=== PATIENT | male | born 1990 | race Caucasian/White ===

== ENCOUNTER 2019-06-11 15:52 | Inpatient (IN) | payer OTHER ==
[2019-06-11 19:25] VITALS: BMI 29.9
--- NOTE | 2019-06-11 22:10 | HP ---
CIWA Score Nausea/Vomitin Muscle Tremors: 4-Moderate,w/Arms Extend Anxiety: 3 Agitation: 3 Paroxysmal Sweats: 3 Orientation: 1-Uncertain about Date Tacttile Disturbances: 0-None Auditory Disturbances: 0-None Visual Disturbances: 0-None Headache: 3-Moderate CIWA-Ar Total Score: 19 - Admission Criteria [facility]ASAS Guidelines: Admission for Medically Managed Detox: Requires at least one of the followin. CIWA greater than 12 2. Seizures within the past 24 hours 3. Delirium tremens within the past 24 hours 4. Hallucinations within the past 24 hours 5. Acute intervention needed for co occurring medical disorder 6. Acute intervention needed for co occurring psychiatric disorder 7. Severe withdrawal that cannot be handled at a lower level of care (continued vomiting, continued diarrhea, abnormal vital signs) requiring intravenous medication and/or fluids 8. Admission ROS [facility] Chief Complaint: Alcohol withdrawal symptoms, on methadone therapy Allergies/Adverse Reactions: Allergies Allergy/AdvReac Type Severity Reaction Status Date / Time No Known Allergies Allergy Verified 06/11/19 19:16 History of Present Illness: 28 years old male with 11 years of alcohol dependence and 6 years of opiate dependence is seeking admission to detox. Patient has been in detox, last at [facility] and 4 months of sobriety. His urine was positive only for cocaine and Buprenorphine. Patient states that he had a prescription at one point, stopped in April and does not want to continue with Buprenorphine. Patient is to be detoxed from Alcohol. He reports that he has relapsed several times after detox and would want to go to Rehab. - Ebola screening Have you traveled outside of the country in the last 21 days: No Have you had contact with anyone from an Ebola affected area: No Do you have a fever: No - Review of Systems Constitutional: Chills, Loss of Appetite, Malaise, Weakness EENT: reports: No Symptoms Reported, Nose Congestion, Sinus Pressure Respiratory: reports: No Symptoms reported Cardiac: reports: No Symptoms Reported GI: reports: Poor Appetite, Poor Fluid Intake, Abdominal cramping : reports: No Symptoms Reported Musculoskeletal: reports: Back Pain, Muscle Pain Integumentary: reports: Dryness, Flushing Neuro: reports: Tremors Endocrine: reports: No Symptoms Reported Hematology: reports: No Symptoms Reported Psychiatric: reports: Mood/Affect Appropiate, Orientated x3 Other Systems: Reviewed and Negative Patient History - Patient Medical History Hx Anemia: No Hx Asthma: No Hx Chronic Obstructive Pulmonary Disease (COPD): No Hx Cancer: No Hx Cardiac Disorders: No Hx Congestive Heart Failure: No Hx Hypertension: No Hx Hypercholesterolemia: No Hx Pacemaker: No HX Cerebrovascular Accident: No Hx Seizures: No Hx Diabetes: No Hx Gastrointestinal Disorders: No Hx Liver Disease: No Hx Genitourinary Disorders: No Hx Sexually Transmitted Disorders: No Hx Renal Disease (ESRD): No Hx Thyroid Disease: No Hx Human Immunodeficiency Virus (HIV): No (Negative 2019) Hx Hepatitis C: No Hx Depression: No Hx Suicide Attempt: No Hx Bipolar Disorder: Yes Hx Schizophrenia: No - Patient Surgical History Past Surgical History: Yes Hx Neurologic Surgery: No Hx Cataract Extraction: No Hx Cardiac Surgery: No Hx Lung Surgery: No Hx Breast Surgery: No Hx Breast Biopsy: No Hx Abdominal Surgery: No Hx Appendectomy: No Hx Cholecystectomy: No Hx Genitourinary Surgery: No Hx Section: No Hx Orthopedic Surgery: No Other Surgical History: HERNIA REPAIR- 2014 Anesthesia Reaction: No - PPD History Previous Implant?: Yes Documented Results: Negative w/o proof Implanted On Prior R Admission?: No PPD to be Administered?: Yes - Reproductive History Patient is a Female of Child Bearing Age (11 -55 yrs old): No (male) - Smoking Cessation Smoking history: Current every day smoker Have you smoked in the past 12 months: Yes Aproximately how many cigarettes per day: 5 Hx Chewing Tobacco Use: No Initiated information on smoking cessation: Yes 'Breaking Loose' booklet given: 06/11/19 - Substance & Tx. History Hx Alcohol Use: Yes Hx Substance Use: Yes Substance Use Type: Alcohol, Cocaine, Heroin, Marijuana, Opiates Hx Substance Use Treatment: Yes ([facility]) - Substances abused Alcohol Substance route: Oral Frequency: Daily Amount used: LIQUOR- 3 PINTS, BEER- 1 SIX PACK Age of first use: 19 Date of last use: 06/10/19 Heroin Substance route: Inhalation Frequency: Daily Amount used: 5 BAGS Age of first use: 22 Date of last use: 06/09/19 Cocaine Substance route: Inhalation Frequency: Daily Amount used: 2 BAGS Age of first use: 24 Date of last use: 06/10/19 Marijuana/Hashish Substance route: Smoking Frequency: Daily Amount used: 3 BLUNTS Age of first use: 12 Date of last use: 06/04/19 Family Disease History - Family Disease History Family Disease History: Other: Father (Alcohol and Cocaine addiction), Mother ( Bipolar) Admission Physical Exam [facility] - Vital Signs Vital Signs: Vital Signs - 24 hr 06/11/19 19:10 Temperature 99.2 F Pulse Rate 75 Respiratory 18 Rate Blood Pressure 118/62 - Physical General Appearance: Yes: Moderate Distress, Tremorous, Anxious HEENTM: Yes: Normal ENT Inspection, Normal Voice Respiratory: Yes: Lungs Clear, Normal Breath Sounds, No Respiratory Distress Neck: Yes: Supple Breast: Yes: Breast Exam Deferred Cardiology: Yes: Regular Rhythm, Regular Rate Abdominal: Yes: Normal Bowel Sounds Genitourinary: Yes: Within Normal Limits Back: Yes: Normal Inspection Musculoskeletal: Yes: Back pain Extremities: Yes: Tremors Neurological: Yes: Alert, Normal Mood/Affect Integumentary: Yes: Warm Lymphatic: Yes: Within Normal Limits - Diagnostic (1) Alcohol dependence with uncomplicated withdrawal Current Visit: Yes Status: Chronic (2) Nicotine dependence Current Visit: Yes Status: Chronic Qualifiers: Substance use status: in withdrawal (3) Opioid dependence with withdrawal Current Visit: Yes Status: Chronic (4) Cocaine dependence Current Visit: Yes Status: Chronic Qualifiers: Substance use status: uncomplicated Qualified Code(s): F14.20 - Cocaine dependence, uncomplicated Cleared for Admission [facility] - Detox or Rehab [facility] Level of Care: Medically Managed Detox Regimen/Protocol: Librium Breathalyzer - Breathalyzer Breathalyzer: 0 Urine Drug Screen - Test Device Lot number: [id number] Expiration date: 03/12/21 - Control Is test valid?: Yes - Results Drug screen NEGATIVE: No Urine drug screen results: ERIC-Cocaine, BUP-Suboxone Inpatient Rehab Admission - Rehab Decision to Admit Inpatient rehab admission?: No
[2019-06-11] MEDS ORDERED: BISMUTH SUBSALICYLATE 524 MG/30 ML UD PO PRN (22:17)
[2019-06-11] MEDS ORDERED: NICOTINE POLACRILEX 2 MG GUM BUC PRN (22:17)
[2019-06-11] MEDS ORDERED: MENTHOL/PHENOL 1 EACH UD MM PRN (22:17)
[2019-06-11] MEDS ORDERED: chlordiazePOXIDE HCL 25 MG CAPSULE PO PRN (22:17)
[2019-06-11] MEDS ORDERED: ACETAMINOPHEN 325 MG TABLET (FP) PO PRN ×2 (22:17)
[2019-06-11] MEDS ORDERED: MAGNESIUM CITRATE 300 ML BOTTLE PO PRN (22:17)
[2019-06-11] MEDS ORDERED: MAGNESIUM HYDROX 2400MG/30ML ORAL SUSPENSION 30 ML CUP PO PRN (22:17)
[2019-06-11] MEDS ORDERED: MAG HYDROX/AL HYDROX/SIMETH 30 ML UNIT-DOSE CUP PO PRN (22:17)
[2019-06-11] MEDS: chlordiazePOXIDE HCL 25 MG CAPSULE PO SCH (23:21)
[2019-06-11] MEDS: IBUPROFEN 400 MG TABLET (FP) PO PRN (23:22)
[2019-06-11] MEDS: MELATONIN 5 MG TABLETS PO PRN (23:23)
[2019-06-12] MEDS: chlordiazePOXIDE HCL 25 MG CAPSULE PO SCH ×4 (08:01→22:04)
--- NOTE | 2019-06-12 08:23 | EKG ---
Test Reason : Blood Pressure : / mmHG Vent. Rate : 067 BPM Atrial Rate : 067 BPM P-R Int : 162 ms QRS Dur : 090 ms QT Int : 412 ms P-R-T Axes : 055 001 -09 degrees QTc Int : 435 ms NORMAL SINUS RHYTHM T WAVE ABNORMALITY, CONSIDER INFERIOR ISCHEMIA ABNORMAL ECG NO PREVIOUS ECGS AVAILABLE Confirmed by ROSALINDA LOZANO, SARI ([id number]) on 06/12/2019 8:22:44 AM Referred By: ZOYA MCGREGOR Confirmed By:SARI TELLEZ MD
[2019-06-12] MEDS: PRENATAL VITAMINS W/ FOLIC ACID TABLET (FP) PO SCH (10:05)
[2019-06-12] MEDS: IBUPROFEN 400 MG TABLET (FP) PO PRN (10:08)
[2019-06-12] MEDS: NICOTINE 21 MG/24 HOURS TOPICAL PATCH TD SCH (10:09)
[2019-06-12 10:26] LABS: HEMATOCRIT 41.6 % (35.4-49); HEMOGLOBIN 14.1 GM/dL (11.7-16.9); MCH 29.7 pg (25.7-33.7); MCHC 33.9 g/dl (32.0-35.9); MEAN CELL VOLUME 87.8 fl (80-96); MEAN PLT VOLUME 8.2 fl (7.5-11.1); PLATELET COUNT 267 K/MM3 (134-434); RBC 4.74 M/mm3 (4.00-5.60); RDW 13.8 % (11.9-15.9); WHITE BLOOD COUNT 6.6 K/mm3 (4.0-10.0)
[2019-06-12 10:40] LABS: ALBUMIN 3.8 g/dl (3.4-5.0); BILIRUBIN,TOTAL 0.3 mg/dL (0.2-1); BLOOD UREA NITROGEN 9.4 mg/dL (7-18); CALCIUM 9.2 mg/dL (8.5-10.1); CREATININE 1.2 mg/dL (0.55-1.3); POTASSIUM 4.1 mmol/L (3.5-5.1); TOT PROT 6.3 g/dl (6.4-8.2)
--- NOTE | 2019-06-12 11:15 | PN ---
[facility] CIWA - CIWA Score Nausea/Vomitin-No Nausea/No Vomiting Muscle Tremors: 3 Anxiety: 3 Agitation: 3 Paroxysmal Sweats: 2 Orientation: 0-Oriented Tacttile Disturbances: 0-None Auditory Disturbances: 0-None Visual Disturbances: 0-None Headache: 0-None Present CIWA-Ar Total Score: 11 S Progress Note (SOAP) Subjective: joint pain sweats body aches interrupted sleep Objective: 06/12/19 11:14 Vital Signs Temperature 97.9 F 06/12/19 09:33 Pulse Rate 69 06/12/19 09:33 Respiratory Rate 20 06/12/19 09:33 Blood Pressure 135/92 06/12/19 09:33 O2 Sat by Pulse Oximetry (%) Laboratory Tests 06/12/19 06/12/19 07:30 07:30 WBC 6.6 RBC 4.74 Hgb 14.1 Hct 41.6 MCV 87.8 MCH 29.7 MCHC 33.9 RDW 13.8 Plt Count 267 MPV 8.2 Sodium 142 Potassium 4.1 Chloride 106 Carbon Dioxide 32 Anion Gap 4 L BUN 9.4 Creatinine 1.2 Est GFR (CKD-EPI)AfAm 93.48 Est GFR (CKD-EPI)NonAf 80.66 Random Glucose 136 H Calcium 9.2 Total Bilirubin 0.3 AST 18 ALT 31 Alkaline Phosphatase 55 Total Protein 6.3 L Albumin 3.8 labs noted aaox3 ambulating no acute distress Assessment: 06/12/19 11:14 withdrawal sx Plan: continue detox increase fluids motrin/tylenol prn
--- NOTE | 2019-06-12 15:18 | CONSULT ---
[facility] Psychiatric Consult - Data Date of interview: 06/12/19 Admission source: [facility] Identifying data: Patient is a 28 year old single male, father of one, unemployed and is currently residing in a senior living. This is patient's first admission to detox at [facility]. Patient admitted to for alcohol and cocaine dependence. Substance Abuse History: Smoking Cessation. Smoking history: Current every day smoker. Have you smoked in the past 12 months: Yes. Aproximately how many cigarettes per day: 5. Hx Chewing Tobacco Use: No. Initiated information on smoking cessation: Yes. 'Breaking Loose' booklet given: 06/11/19. - Substance & Tx. History. Hx Alcohol Use: Yes. Hx Substance Use: Yes. Substance Use Type : Alcohol, Cocaine, Heroin, Marijuana, Opiates. Hx Substance Use Treatment: Yes ([facility]). - Substances abused. Alcohol. Substance route: Oral. Frequency: Daily. Amount used: LIQUOR- 3 PINTS, BEER- 1 SIX PACK. Age of first use: 19. Date of last use: 06/10/19. Heroin. Substance route: Inhalation. Frequency: Daily. Amount used: 5 BAGS. Age of first use: 22. Date of last use: 06/09/19. Cocaine. Substance route: Inhalation. Frequency: Daily. Amount used: 2 BAGS. Age of first use: 24. Date of last use: 06/10/19. Marijuana/Hashish. Substance route: Smoking. Frequency: Daily. Amount used: 3 BLUNTS. Age of first use: 12. Date of last use: 06/04/19 Medical History: hernia repair in 2015. Psychiatric History: Patient's reports first being diagnosed with Bipolar disorder at the age of 21 after seeing a psychiatrist at [facility] outpatient clinic. Mr. Malcolm Moss reports history of one psychiatric hospitalization at [facility] three years ago after having a manic episiode in which he experienced symptoms of euphoria, risky behavior, impuslivity, and insomnia. He reports past trials of depakote, risperdal and wellbutrin. Patient currently see's a psychiatrist at [facility] in the [facility] and is prescribed Finger 300mg TID. Reports most recently taking medications 3 days ago. Patient denies h/o suicide attempt. At present, patient is slightly irritable but cooperative with headline writer. No psychosis, manic, or depressive symptoms noted. Physical/Sexual Abuse/Trauma History: denies. Mental Status Exam - Mental Status Exam Alert and Oriented to: Time, Place, Person Cognitive Function: Good Patient Appearance: Well Groomed Mood: Irritable (slightly irritable) Affect: Mood Congruent Patient Behavior: Cooperative Speech Pattern: Appropriate Voice Loudness: Normal Thought Process: Goal Oriented Thought Disorder: Not Present Hallucinations: Denies Suicidal Ideation: Denies Homicidal Ideation: Denies Insight/Judgement: Poor Sleep: Fair Appetite: Fair Muscle strength/Tone: Normal Gait/Station: Normal Psychiatric Findings - Problem List ([place] 1, 2,3) (1) Substance induced mood disorder Current Visit: Yes Status: Acute (2) Alcohol dependence with uncomplicated withdrawal Current Visit: Yes Status: Acute (3) Cocaine dependence Current Visit: Yes Status: Chronic Qualifiers: Substance use status: uncomplicated Qualified Code(s): F14.20 - Cocaine dependence, uncomplicated (4) Nicotine dependence Current Visit: Yes Status: Chronic Qualifiers: Substance use status: in withdrawal (5) Opioid dependence with withdrawal Current Visit: Yes Status: Chronic (6) Bipolar disorder Current Visit: Yes Status: Chronic - Initial Treatment Plan Initial Treatment Plan: Psychoeducation provided. Detoxification in progress. [facility] pharmacy called at [phone] and able to speak to pharmacist. As per pharmacy staff patient picked up his prescription of lithium 300mg TID on . Will order Finger 300mg BID. Finger level ordered for 06/13/10. Renal function within normal limits. Benefits and side effects discussed. Verbal consent given.
[2019-06-12] MEDS: LITHIUM CARBONATE 300 MG CAPSULE (FP) PO SCH (22:04)
[2019-06-12] MEDS: THIAMINE HCL 100 MG TABLET (FP) PO SCH (22:04)
[2019-06-13] MEDS: chlordiazePOXIDE HCL 25 MG CAPSULE PO SCH ×4 (06:11→22:03)
[2019-06-13] MEDS: PRENATAL VITAMINS W/ FOLIC ACID TABLET (FP) PO SCH (10:19)
[2019-06-13] MEDS: LITHIUM CARBONATE 300 MG CAPSULE (FP) PO SCH ×2 (10:19→22:03)
[2019-06-13] MEDS: NICOTINE 21 MG/24 HOURS TOPICAL PATCH TD SCH (10:20)
--- NOTE | 2019-06-13 12:13 | PN ---
[facility] CIWA - CIWA Score Nausea/Vomitin-No Nausea/No Vomiting Muscle Tremors: 2 Anxiety: 1-Mildly Anxious Agitation: 1-Slight > Activity Paroxysmal Sweats: 1-Minimal Palms Moist Orientation: 0-Oriented Tacttile Disturbances: 0-None Auditory Disturbances: 0-None Visual Disturbances: 0-None Headache: 0-None Present CIWA-Ar Total Score: 5 [facility] Progress Note (SOAP) Subjective: little anxiety feeling much better Objective: 06/13/19 12:11 Vital Signs Temperature 97.9 F 06/13/19 09:45 Pulse Rate 78 06/13/19 09:45 Respiratory Rate 18 06/13/19 09:45 Blood Pressure 130/69 06/13/19 09:45 O2 Sat by Pulse Oximetry (%) Laboratory Tests 06/12/19 06/12/19 06/12/19 07:30 07:30 07:30 WBC 6.6 RBC 4.74 Hgb 14.1 Hct 41.6 MCV 87.8 MCH 29.7 MCHC 33.9 RDW 13.8 Plt Count 267 MPV 8.2 Sodium 142 Potassium 4.1 Chloride 106 Carbon Dioxide 32 Anion Gap 4 L BUN 9.4 Creatinine 1.2 Est GFR (CKD-EPI)AfAm 93.48 Est GFR (CKD-EPI)NonAf 80.66 Random Glucose 136 H Calcium 9.2 Total Bilirubin 0.3 AST 18 ALT 31 Alkaline Phosphatase 55 Total Protein 6.3 L Albumin 3.8 RPR Titer HIV 1&2 Antibody Screen Negative HIV P24 Antigen Negative 06/12/19 07:30 WBC RBC Hgb Hct MCV MCH MCHC RDW Plt Count MPV Sodium Potassium Chloride Carbon Dioxide Anion Gap BUN Creatinine Est GFR (CKD-EPI)AfAm Est GFR (CKD-EPI)NonAf Random Glucose Calcium Total Bilirubin AST ALT Alkaline Phosphatase Total Protein Albumin RPR Titer Nonreactive HIV 1&2 Antibody Screen HIV P24 Antigen labs noted aaox3 ambulating no acute distress Assessment: 06/13/19 12:12 withdrawal sx Plan: continue detox increase fluids
[2019-06-13] MEDS: MELATONIN 5 MG TABLETS PO PRN (22:03)
[2019-06-13] MEDS: THIAMINE HCL 100 MG TABLET (FP) PO SCH (22:03)
[2019-06-13] MEDS: METHOCARBAMOL 500 MG TABLET PO PRN (22:04)
[2019-06-14] MEDS ORDERED: chlordiazePOXIDE HCL 10 MG CAPSULE PO PRN
[2019-06-14] MEDS: hydrOXYzine PAMOATE 25 MG CAPSULE (FP) PO PRN ×2 (01:50→17:25)
[2019-06-14] MEDS: chlordiazePOXIDE HCL 10 MG CAPSULE PO SCH ×4 (05:20→22:44)
[2019-06-14] MEDS: IBUPROFEN 400 MG TABLET (FP) PO PRN ×2 (05:20→15:24)
[2019-06-14] MEDS: PRENATAL VITAMINS W/ FOLIC ACID TABLET (FP) PO SCH (10:20)
[2019-06-14] MEDS: LITHIUM CARBONATE 300 MG CAPSULE (FP) PO SCH ×2 (10:20→23:08)
[2019-06-14] MEDS: NICOTINE 21 MG/24 HOURS TOPICAL PATCH TD SCH (10:20)
--- NOTE | 2019-06-14 13:41 | PN ---
S CIWA - CIWA Score Nausea/Vomitin-No Nausea/No Vomiting Muscle Tremors: 1-None Visible, but [place] Anxiety: 1-Mildly Anxious Agitation: 1-Slight > Activity Paroxysmal Sweats: 1-Minimal Palms Moist Orientation: 0-Oriented Tacttile Disturbances: 0-None Auditory Disturbances: 0-None Visual Disturbances: 0-None Headache: 0-None Present CIWA-Ar Total Score: 4 [facility] Progress Note (SOAP) Subjective: anxiety Objective: 06/14/19 13:40 Vital Signs Temperature 97.9 F 06/14/19 09:22 Pulse Rate 71 06/14/19 09:22 Respiratory Rate 18 06/14/19 09:22 Blood Pressure 127/76 06/14/19 09:22 O2 Sat by Pulse Oximetry (%) Laboratory Tests 06/12/19 06/12/19 06/12/19 07:30 07:30 07:30 WBC 6.6 RBC 4.74 Hgb 14.1 Hct 41.6 MCV 87.8 MCH 29.7 MCHC 33.9 RDW 13.8 Plt Count 267 MPV 8.2 Sodium 142 Potassium 4.1 Chloride 106 Carbon Dioxide 32 Anion Gap 4 L BUN 9.4 Creatinine 1.2 Est GFR (CKD-EPI)AfAm 93.48 Est GFR (CKD-EPI)NonAf 80.66 Random Glucose 136 H Calcium 9.2 Total Bilirubin 0.3 AST 18 ALT 31 Alkaline Phosphatase 55 Total Protein 6.3 L Albumin 3.8 [place] RPR Titer HIV 1&2 Antibody Screen Negative HIV P24 Antigen Negative 06/12/19 06/13/19 07:30 07:30 WBC RBC Hgb Hct MCV MCH MCHC RDW Plt Count MPV Sodium Potassium Chloride Carbon Dioxide Anion Gap BUN Creatinine Est GFR (CKD-EPI)AfAm Est GFR (CKD-EPI)NonAf Random Glucose Calcium Total Bilirubin AST ALT Alkaline Phosphatase Total Protein Albumin [place] 0.1 L RPR Titer Nonreactive HIV 1&2 Antibody Screen HIV P24 Antigen labs noted aaox3 ambulating no acute distress Assessment: 06/14/19 13:40 mild withdrawal sx Plan: continue detox increase fluids
[2019-06-14] MEDS: MELATONIN 5 MG TABLETS PO PRN (22:44)
[2019-06-14] MEDS: THIAMINE HCL 100 MG TABLET (FP) PO SCH (22:44)
[2019-06-14] MEDS: METHOCARBAMOL 500 MG TABLET PO PRN (22:52)
[2019-06-15] MEDS: chlordiazePOXIDE HCL 10 MG CAPSULE PO SCH ×2 (05:07→17:19)
[2019-06-15] MEDS: IBUPROFEN 400 MG TABLET (FP) PO PRN ×2 (05:08→17:19)
[2019-06-15] MEDS: NICOTINE 21 MG/24 HOURS TOPICAL PATCH TD SCH (10:16)
[2019-06-15] MEDS: PRENATAL VITAMINS W/ FOLIC ACID TABLET (FP) PO SCH (10:16)
[2019-06-15] MEDS: METHOCARBAMOL 500 MG TABLET PO PRN ×2 (10:16→22:47)
[2019-06-15] MEDS: LITHIUM CARBONATE 300 MG CAPSULE (FP) PO SCH ×2 (10:16→22:46)
[2019-06-15] MEDS: hydrOXYzine PAMOATE 25 MG CAPSULE (FP) PO PRN (10:18)
--- NOTE | 2019-06-15 11:20 | PN ---
S CIWA - CIWA Score Nausea/Vomitin-No Nausea/No Vomiting Muscle Tremors: None Anxiety: 2 Agitation: 0-Normal Activity Paroxysmal Sweats: 2 Orientation: 0-Oriented Tacttile Disturbances: 0-None Auditory Disturbances: 0-None Visual Disturbances: 0-None Headache: 0-None Present CIWA-Ar Total Score: 4 S Progress Note (SOAP) Subjective: c/o sweats and anxiety. Objective: 06/15/19 11:23 Vital Signs 06/15/19 06/15/19 06:46 09:48 Temperature 97.5 F L 97.5 F L Pulse Rate 64 72 Respiratory 18 18 Rate Blood Pressure 111/60 130/76 Lab Results WBC 6.6 K/mm3 (4.0-10.0) 06/12/19 07:30 RBC 4.74 M/mm3 (4.00-5.60) 06/12/19 07:30 Hgb 14.1 GM/dL (11.7-16.9) 06/12/19 07:30 Hct 41.6 % (35.4-49) 06/12/19 07:30 MCV 87.8 fl (80-96) 06/12/19 07:30 MCHC 33.9 g/dl (32.0-35.9) 06/12/19 07:30 RDW 13.8 % (11.9-15.9) 06/12/19 07:30 Plt Count 267 K/MM3 (134-434) 06/12/19 07:30 Sodium 142 mmol/L (136-145) 06/12/19 07:30 Potassium 4.1 mmol/L (3.5-5.1) 06/12/19 07:30 Chloride 106 mmol/L (98-107) 06/12/19 07:30 Carbon Dioxide 32 mmol/L (21-32) 06/12/19 07:30 Anion Gap 4 MMOL/L (8-16) L 06/12/19 07:30 BUN 9.4 mg/dL (7-18) 06/12/19 07:30 Creatinine 1.2 mg/dL (0.55-1.3) 06/12/19 07:30 Random Glucose 136 mg/dL (74-106) H 06/12/19 07:30 Calcium 9.2 mg/dL (8.5-10.1) 06/12/19 07:30 Labs noted. Assessment: 06/15/19 11:23 AOX3, in no acute distress. Full ROM, ambulating in the unit. mild withdrawal symptoms. For d/c tomorrow Plan: continue detox. D/C in AM.
[2019-06-15] MEDS: THIAMINE HCL 100 MG TABLET (FP) PO SCH (22:46)
[2019-06-15] MEDS: MELATONIN 5 MG TABLETS PO PRN (22:46)
[2019-06-16] MEDS ORDERED: chlordiazePOXIDE HCL 10 MG CAPSULE PO ONE (05:00)
[2019-06-16 06:54] VITALS: BP 130/66; PULSE 67; TEMP 97
--- NOTE | 2019-06-16 12:23 | DS ---
[facility] Detox Discharge Summary Admission Date: 06/11/19 Discharge Date: 06/16/19 - History Present History: Alcohol Dependence, Cannabis Dependence, Cocaine Dependence, Opioid Dependence Additional Comments: Patient completed detox and discharged safely in stable condition. Instructed to follow up with PCP within 1-2 weeks. Pertinent Past History: Nicotine dependence - Physical Exam Results Vital Signs: Vital Signs Temperature 97 F L 06/16/19 06:53 Pulse Rate 67 06/16/19 06:53 Respiratory Rate 18 06/16/19 06:53 Blood Pressure 130/66 06/16/19 06:53 O2 Sat by Pulse Oximetry (%) Pertinent Admission Physical Exam Findings: Withdrawal symptoms Laboratory Tests 06/12/19 06/12/19 06/12/19 07:30 07:30 07:30 WBC 6.6 RBC 4.74 Hgb 14.1 Hct 41.6 MCV 87.8 MCH 29.7 MCHC 33.9 RDW 13.8 Plt Count 267 MPV 8.2 Sodium 142 Potassium 4.1 Chloride 106 Carbon Dioxide 32 Anion Gap 4 L BUN 9.4 Creatinine 1.2 Est GFR (CKD-EPI)AfAm 93.48 Est GFR (CKD-EPI)NonAf 80.66 Random Glucose 136 H Calcium 9.2 Total Bilirubin 0.3 AST 18 ALT 31 Alkaline Phosphatase 55 Total Protein 6.3 L Albumin 3.8 [place] RPR Titer HIV 1&2 Antibody Screen Negative HIV P24 Antigen Negative TB (QFT) Incubation TB Test (QFT) Nil TB Test (QFT) Mitogen TB Test (QFT) Antigen TB Test (QFT) TB Positive Criteria 06/12/19 06/12/19 06/13/19 07:30 07:30 07:30 WBC RBC Hgb Hct MCV MCH MCHC RDW Plt Count MPV Sodium Potassium Chloride Carbon Dioxide Anion Gap BUN Creatinine Est GFR (CKD-EPI)AfAm Est GFR (CKD-EPI)NonAf Random Glucose Calcium Total Bilirubin AST ALT Alkaline Phosphatase Total Protein Albumin [place] 0.1 L RPR Titer Nonreactive HIV 1&2 Antibody Screen HIV P24 Antigen TB (QFT) Incubation TB Test (QFT) Nil 0.02 TB Test (QFT) Mitogen >10.00 TB Test (QFT) Antigen 0.02 TB Test (QFT) Negative TB Positive Criteria Labs reviewed: glucose 136mg/dl, most likely r/t withdrawal, follow up with PCP for monitoring - Treatment Hospital Course: Detox Protocol Followed, Detoxed Safely, Responded well, Discharged Condition Good - Medication Discharge Medications: Ambulatory Orders Cole[place] Carbonate [Eskalith -] 300 mg PO TID 06/11/19 - Diagnosis (1) Cannabis dependence Status: Chronic (2) Alcohol dependence with uncomplicated withdrawal Status: Acute (3) Cocaine dependence Status: Chronic Qualifiers: Substance use status: uncomplicated Qualified Code(s): F14.20 - Cocaine dependence, uncomplicated (4) Nicotine dependence Status: Chronic Qualifiers: Substance use status: in withdrawal (5) Opioid dependence with withdrawal Status: Acute (6) Hyperglycemia Status: Acute - AMA Did Patient Leave Against Medical Advice: No (Follow up with PCP within 1-2 weeks)
== END 2019-06-16 08:42 | disposition home or self-care (01) | DRG 773 ==
LOC: YASAS 15:52 → Y6N 22:41
PROVIDERS: ADMIT Surgery; ATTEND Surgery
PROC: HZ2ZZZZ Detoxification Services for Substance Abuse Treatment (ICD-10-PCS; principal; 2019-06-11)
DX: F11.23 Opioid dependence with withdrawal (principal); F10.230 Alcohol dependence with withdrawal, uncomplicated; F14.20 Cocaine dependence, uncomplicated; F12.20 Cannabis dependence, uncomplicated; F17.213 Nicotine dependence, cigarettes, with withdrawal; F31.9 Bipolar disorder, unspecified; R73.9 Hyperglycemia, unspecified
CPT/HCPCS: 36415; 80053; 80178; 85027; 86480; 86593; 87389; 93005; 93010

== ENCOUNTER 2022-01-26 10:08 | Inpatient (IN) | payer OTHER ==
[2022-01-26] MEDS ORDERED: MAGNESIUM CITRATE 300 ML BOTTLE PO PRN (11:18)
[2022-01-26] MEDS ORDERED: NICOTINE 10 MG CARTRIDGE (INHALER) IH PRN (11:18)
[2022-01-26] MEDS ORDERED: ONDANSETRON *ODT* 4 MG TABLET SL PRN (11:18)
[2022-01-26] MEDS ORDERED: MENTHOL/PHENOL 1 EACH UD MM PRN (11:18)
[2022-01-26] MEDS ORDERED: MAG HYDROX/AL HYDROX/SIMETH 30 ML UNIT-DOSE CUP PO PRN (11:18)
[2022-01-26] MEDS ORDERED: BISMUTH SUBSALICYLATE 524 MG/30 ML PO PRN (11:18)
[2022-01-26] MEDS ORDERED: MAGNESIUM HYDROX 2400MG/30ML ORAL SUSPENSION 30 ML CUP PO PRN (11:18)
[2022-01-26] MEDS ORDERED: LOPERAMIDE HCL 2 MG CAPSULE PO PRN (11:18)
[2022-01-26] MEDS ORDERED: ACETAMINOPHEN 325 MG TABLET (FP) PO PRN (11:18)
[2022-01-26] MEDS ORDERED: methaDONE HCL 10 MG TABLET (FOR DETOX USE ONLY) PO ONE (11:18)
[2022-01-26 12:39] VITALS: BMI 22.4
[2022-01-26] MEDS: hydrOXYzine PAMOATE 25 MG CAPSULE (FP) PO SCH ×3 (14:03→23:11)
[2022-01-26] MEDS: PRENATAL VITAMINS W/ FOLIC ACID TABLET (FP) PO SCH (14:03)
[2022-01-26] MEDS: ASPIRIN COATED 81 MG TABLET.EC PO SCH (15:49)
[2022-01-26 17:13] LABS: HEMATOCRIT 31.2 % (35.4-49); MCH 25.5 pg (25.7-33.7); MEAN CELL VOLUME 79.8 fl (80-96); MEAN PLT VOLUME 8.6 fl (7.5-11.1); PLATELET COUNT 301 10^3/uL (134-434); RDW 15.3 % (11.9-15.9); WHITE BLOOD COUNT 5.4 K/mm3 (4.0-10.0)
[2022-01-26 17:21] LABS: CALCIUM 8.4 mg/dL (8.5-10.1)
[2022-01-26 17:22] LABS: ALBUMIN 3.3 g/dl (3.4-5.0); BLOOD UREA NITROGEN 20.3 mg/dL (7-18)
[2022-01-26 17:27] LABS: BILIRUBIN,TOTAL 0.7 mg/dL (0.2-1); TOT PROT 6.8 g/dl (6.4-8.2)
[2022-01-26] MEDS: METHOCARBAMOL 500 MG TABLET PO PRN (18:57)
[2022-01-26] MEDS: TRIMETHOBENZAMIDE HCL 300 MG CAPSULE PO PRN (18:58)
[2022-01-26] MEDS: cloNIDine HCL 0.1 MG TABLET PO PRN (18:58)
[2022-01-26] MEDS: MELATONIN 5 MG TABLETS PO SCH (23:10)
[2022-01-26] MEDS: THIAMINE HCL 100 MG TABLET (FP) PO SCH (23:11)
[2022-01-27] MEDS: hydrOXYzine PAMOATE 25 MG CAPSULE (FP) PO SCH ×5 (07:03→21:58)
[2022-01-27] MEDS ORDERED: methaDONE HCL 10 MG TABLET (FOR DETOX USE ONLY) ONE (08:35)
[2022-01-27] MEDS: ASPIRIN COATED 81 MG TABLET.EC PO SCH (10:15)
[2022-01-27] MEDS: PRENATAL VITAMINS W/ FOLIC ACID TABLET (FP) PO SCH (10:15)
[2022-01-27] MEDS: NICOTINE 14 MG/24 HOURS TOPICAL PATCH TD SCH (10:16)
[2022-01-27 15:15] LABS: HIV INTERPRETATION NEGATIVE (NEGATIVE)
[2022-01-27] MEDS: IBUPROFEN 400 MG TABLET (FP) PO PRN (17:58)
[2022-01-27] MEDS: TRIMETHOBENZAMIDE HCL 300 MG CAPSULE PO PRN (18:00)
[2022-01-27] MEDS: MELATONIN 5 MG TABLETS PO SCH (21:58)
[2022-01-27] MEDS: cloNIDine HCL 0.1 MG TABLET PO PRN (21:58)
[2022-01-27] MEDS: THIAMINE HCL 100 MG TABLET (FP) PO SCH (21:58)
[2022-01-27] MEDS: METHOCARBAMOL 500 MG TABLET PO PRN (21:58)
[2022-01-28] MEDS: hydrOXYzine PAMOATE 25 MG CAPSULE (FP) PO SCH ×5 (07:07→22:24)
[2022-01-28 08:08] LABS: SARS-CoV-2 NAA Not Detected (Not Detected)
[2022-01-28] MEDS ORDERED: methaDONE HCL 10 MG TABLET (FOR DETOX USE ONLY) PO ONE (10:00)
[2022-01-28] MEDS: ASPIRIN COATED 81 MG TABLET.EC PO SCH (10:17)
[2022-01-28] MEDS: PRENATAL VITAMINS W/ FOLIC ACID TABLET (FP) PO SCH (10:17)
[2022-01-28] MEDS: METHOCARBAMOL 500 MG TABLET PO PRN ×2 (10:17→22:25)
[2022-01-28] MEDS: IBUPROFEN 400 MG TABLET (FP) PO PRN ×2 (10:18→22:25)
[2022-01-28] MEDS: diazePAM 5 MG TABLET PO PRN ×2 (10:20→22:24)
[2022-01-28] MEDS: NICOTINE 14 MG/24 HOURS TOPICAL PATCH TD SCH (10:21)
[2022-01-28] MEDS: cloNIDine HCL 0.1 MG TABLET PO PRN (18:03)
[2022-01-28] MEDS: THIAMINE HCL 100 MG TABLET (FP) PO SCH (22:24)
[2022-01-28] MEDS: MELATONIN 5 MG TABLETS PO SCH (22:24)
[2022-01-29] MEDS: hydrOXYzine PAMOATE 25 MG CAPSULE (FP) PO SCH ×5 (06:12→22:12)
[2022-01-29] MEDS: diazePAM 5 MG TABLET PO PRN ×4 (06:49→22:12)
[2022-01-29] MEDS: IBUPROFEN 400 MG TABLET (FP) PO PRN ×2 (06:49→17:43)
[2022-01-29] MEDS: METHOCARBAMOL 500 MG TABLET PO PRN ×3 (06:53→22:13)
[2022-01-29] MEDS ORDERED: methaDONE HCL 10 MG TABLET (FOR DETOX USE ONLY) ONE (09:04)
[2022-01-29] MEDS: ASPIRIN COATED 81 MG TABLET.EC PO SCH (11:55)
[2022-01-29] MEDS: NICOTINE 14 MG/24 HOURS TOPICAL PATCH TD SCH (11:56)
[2022-01-29] MEDS: ACETAMINOPHEN 325 MG TABLET (FP) PO PRN ×2 (11:57→22:12)
[2022-01-29] MEDS: PRENATAL VITAMINS W/ FOLIC ACID TABLET (FP) PO SCH (12:00)
[2022-01-29] MEDS: THIAMINE HCL 100 MG TABLET (FP) PO SCH (22:12)
[2022-01-29] MEDS: MELATONIN 5 MG TABLETS PO SCH (22:12)
[2022-01-30] MEDS: IBUPROFEN 400 MG TABLET (FP) PO PRN ×3 (02:38→17:41)
[2022-01-30] MEDS: diazePAM 5 MG TABLET PO PRN ×5 (02:39→22:45)
[2022-01-30] MEDS: hydrOXYzine PAMOATE 25 MG CAPSULE (FP) PO SCH ×5 (06:34→22:46)
[2022-01-30] MEDS: ACETAMINOPHEN 325 MG TABLET (FP) PO PRN (06:34)
[2022-01-30] MEDS: METHOCARBAMOL 500 MG TABLET PO PRN ×2 (06:37→22:47)
[2022-01-30] MEDS: PRENATAL VITAMINS W/ FOLIC ACID TABLET (FP) PO SCH (09:28)
[2022-01-30] MEDS: ASPIRIN COATED 81 MG TABLET.EC PO SCH (09:28)
[2022-01-30] MEDS: NICOTINE 14 MG/24 HOURS TOPICAL PATCH TD SCH (09:32)
[2022-01-30] MEDS ORDERED: methaDONE HCL 10 MG TABLET (FOR DETOX USE ONLY) PO ONE (10:00)
[2022-01-30] MEDS: MELATONIN 5 MG TABLETS PO SCH (22:46)
[2022-01-30] MEDS: THIAMINE HCL 100 MG TABLET (FP) PO SCH (22:46)
[2022-01-31] MEDS: diazePAM 5 MG TABLET PO PRN (03:25)
[2022-01-31] MEDS: hydrOXYzine PAMOATE 25 MG CAPSULE (FP) PO SCH ×2 (05:45→10:07)
[2022-01-31] MEDS: METHOCARBAMOL 500 MG TABLET PO PRN (05:47)
[2022-01-31 09:01] VITALS: BP 139/69; PULSE 93; TEMP 97.6
[2022-01-31] MEDS: IBUPROFEN 400 MG TABLET (FP) PO PRN (10:06)
[2022-01-31] MEDS: ASPIRIN COATED 81 MG TABLET.EC PO SCH (10:06)
[2022-01-31] MEDS: PRENATAL VITAMINS W/ FOLIC ACID TABLET (FP) PO SCH (10:06)
[2022-01-31] MEDS: NICOTINE 14 MG/24 HOURS TOPICAL PATCH TD SCH (10:07)
[2022-01-31 20:08] LABS: CK-MM 100 % (97-100)
== END 2022-01-31 13:13 | disposition home or self-care (01) | DRG 773 ==
LOC: YASAS 10:08 → Y3N 12:26
PROVIDERS: ADMIT Allergy & Immunology; ATTEND Allergy & Immunology
PROC: HZ2ZZZZ Detoxification Services for Substance Abuse Treatment (ICD-10-PCS; principal; 2022-01-26)
DX: F11.23 Opioid dependence with withdrawal (principal); F14.20 Cocaine dependence, uncomplicated; F12.20 Cannabis dependence, uncomplicated; F17.213 Nicotine dependence, cigarettes, with withdrawal; F19.24 Other psychoactive substance dependence with psychoactive substance-induced mood disorder; F31.9 Bipolar disorder, unspecified; R74.01 Elevation of levels of liver transaminase levels; Z91.19 Patient's noncompliance with other medical treatment and regimen
CPT/HCPCS: 36415; 80053; 82552; 84484; 85027; 86780; 87389; 93005; 93010; C9803-CS; J0735; U0003; U0005